=== PATIENT | female | born 1965 | race Caucasian/White ===

== ENCOUNTER 2018-10-13 12:45 | Emergency (ER) | payer SELFPAY ==
[~2018-10-13] VITALS: Ht 154.9 cm; Wt 79.5 kg
[2018-10-13 12:46] VITALS: BP 207/95
[2018-10-13] MEDS ORDERED: FLUO20CA8 PO (13:48)
[2018-10-13] MEDS ORDERED: VITA-112 PO (13:48)
[2018-10-13] MEDS ORDERED: LISI10TA2 PO (13:48)
[2018-10-13] MEDS ORDERED: CHOL4POW4 PO (13:48)
[2018-10-13] MEDS ORDERED: DICY20TA11 PO (13:48)
[2018-10-13] MEDS ORDERED: RANI15TA PO (13:48)
[2018-10-13] MEDS ORDERED: TRAZ1TAB14 PO (13:48)
[2018-10-13] MEDS ORDERED: DICL75TA PO (13:48)
[2018-10-13] MEDS ORDERED: ATOR40TA75 PO (13:48)
--- NOTE | 2018-10-13 13:52 | REP ---
LEFT WRIST, FOUR VIEWS: HISTORY: Fall. There is no acute fracture or dislocation. The joint spaces are normal in appearance. IMPRESSION: There is no acute fracture or dislocation. Electronically Signed by Diego Link MD 10/13/2018 02:18 P
--- NOTE | 2018-10-13 13:54 | REP ---
LEFT HIP, AP PELVIS, THREE VIEWS: HISTORY: Fall. There is no acute fracture or dislocation. The joint spaces are normal in appearance. IMPRESSION: There is no acute fracture or dislocation. Electronically Signed by Diego Link MD 10/13/2018 02:18 P
[2018-10-13] MEDS ORDERED: NORCO, ANEXSIA 5/325MG TABLET (HYDROcodone/ACETAMINOPHEN) PO ONE (14:15)
[2018-10-13] MEDS ORDERED: KETOROLAC TROMETHAMINE 10 MG TAB PO ONE (14:15)
[2018-10-13] MEDS ORDERED: KETO10TAB PO (14:23)
== END 2018-10-13 15:05 | disposition home or self-care (01) ==
LOC: M ED 12:45
DX: S60.222A Contusion of left hand, initial encounter (principal); S70.02XA Contusion of left hip, initial encounter; I10 Essential (primary) hypertension; F32.9 Major depressive disorder, single episode, unspecified; W19.XXXA Unspecified fall, initial encounter; Z88.8 Allergy status to other drugs, medicaments and biological substances; Z79.899 Other long term (current) drug therapy